=== PATIENT | female | born 1950 | race Caucasian/White ===

== ENCOUNTER → 2025-05-12 09:13 | Outpatient (BNVA) | payer MEDICARE, OTHER, SELFPAY | PROVIDERS: Visit Provider Physician Assistant Surgical | DX: J44.9 Chronic obstructive pulmonary disease, unspecified (principal); R91.1 Solitary pulmonary nodule; E03.9 Hypothyroidism, unspecified; R91.8 Other nonspecific abnormal finding of lung field; Z87.891 Personal history of nicotine dependence | CPT/HCPCS: 36415; 99205 ==

== ENCOUNTER 2025-05-12 17:48 | Outpatient (REF) | payer MEDICARE, OTHER, SELFPAY ==
[2025-05-12 13:30] LABS: Abs Immature Grans 0.03 10^3/uL (0.0-0.06); HCT 45.3 % (36.0-46.0); HGB 15.1 g/dL (11.2-15.7); Immature Grans % 0.4 %; MCH 31.7 pg (27.0-33.0); MCHC 33.3 % (32.0-36.0); MCV 95 fL (80-95); MPV 10.5 fL (8.0-11.0); Platelet Count 240 10^3/uL (130-400); RBC 4.77 10^6/uL (3.93-5.22); RDW 12.0 % (11.7-14.6); RDW-SD 42.3 fL; WBC 7.64 10^3/uL (4.4-10.8)
[2025-05-12 13:47] LABS: NT-proBNP 63 pg/mL (<300); TSH 0.28 uIU/mL (0.36-3.74)
[2025-05-13 11:16] LABS: Ro60 Ab, IgG <7.0 CU (<20.0); SS-A/Ro, IgG <2.3 CU (<20.0); SS-B (La) Ab, IgG <3.3 CU (<20.0); dsDNA Ab, IgG 50.9 IU/mL (<27.0)
[2025-05-13 17:42] LABS: Scl 70 Antibodies, IgG <0.2 U; Sm (Smith) Ab, IgG 1.5 U
[2025-06-09 13:49] LABS: Anti-Jo-1 Ab <20 Units (<20)
[2025-06-09 13:52] LABS: Anti-Ku Ab Negative (Negative); Anti-MDA-5 Ab (CADM-140) <20 Units (<20); Anti-NXP-2 (P140) Ab <20 Units (<20); Anti-PM/Scl-100 Ab <20 Units (<20); Anti-SS-A 52kD Ab, IgG <20 Units (<20); Anti-TIF-1gamma Ab <20 Units (<20); Anti-U2 RNP Ab Negative (Negative); Anti-U3 RNP (Fibrillarin) Negative (Negative)
== END 2025-05-12 17:49 | disposition home or self-care (01) ==
LOC: LBN 17:48
PROVIDERS: Visit Provider Physician Assistant Surgical
DX: E03.9 Hypothyroidism, unspecified (principal); R91.8 Other nonspecific abnormal finding of lung field; J44.9 Chronic obstructive pulmonary disease, unspecified; I50.9 Heart failure, unspecified
CPT/HCPCS: 83516; 86200; 86235; 86376; 82785; 83880; 84439; 84443; 85025; 86038; 86225; 86431

== ENCOUNTER 2025-05-21 01:01 | Outpatient (CLI) | payer MEDICARE, OTHER, SELFPAY ==
[2025-05-21] MEDS: Levalbuterol HFA 15 GM INH 4 PUFF IH (11:52)
[2025-05-21] MEDS: Inhaler, Assist Device 1 EACH MC (11:52)
--- NOTE | 2025-05-24 09:46 | W.PFT ---
Date of service: 05/21/25 Time of Service: 10:03 Pulmonary Function Test Result Indications: ILD Impression 1. Good patient effort was noted. ATS standards for reproducibility were met. 2. Spirometry showed moderate obstructive lung disease with an FEV1 of 54% (0.98 L) 3. Following the administration of a bronchodilator there was not a significant response 4. TLC was normal. No evidence of restrictive lung disease 5. DLCO was normal at 89% predicted
== END 2025-05-21 01:02 | disposition home or self-care (01) ==
LOC: RT 01:01
PROVIDERS: PCP Internal Medicine; Visit Provider Physician Assistant Surgical
DX: J44.9 Chronic obstructive pulmonary disease, unspecified (principal); E03.9 Hypothyroidism, unspecified
CPT/HCPCS: 94060; 94726; 94729

== ENCOUNTER 2025-05-28 03:54 | Outpatient (CLI) | payer MEDICARE, OTHER, SELFPAY ==
--- NOTE | 2025-05-28 06:15 | DI.CT_ITS ---
Exam(s) CT CHEST HIGH RESOLUTION EXAM: CT CHEST HIGH RESOLUTION CLINICAL HISTORY: mosaic attenuation,INTERSTITIAL LUNG ABNORMALITY ON IMAGING. TECHNIQUE: Imaging protocol: Axial computed tomography images were obtained and coronal and sagittal reformatted images were created and reviewed. Lung Computer Aided Detection (CAD) was utilized. COMPARISON: CT CT CHEST SCREENING LUNG CANCER from 04/05/2025 FINDINGS: Tracheobronchial tree: Patent where visualized. No bronchiectasis is present. Pulmonary parenchyma: There is a calcified granuloma in the right lower lobe. The pleural based nodule in the right lower lobe is unchanged. There are no new pulmonary nodules. There are no focal consolidating infiltrates present. There is atelectasis seen in the lung bases bilaterally. The mosaic pattern in the lungs is less prominent compared to the prior examination. Mediastinum and Ese: No dominant adenopathy or fluid collection. The esophagus is unremarkable. Thyroid gland: There is an enlarged right lobe of the thyroid gland. There are thyroid nodules present. The largest is thyroid nodule measures 1.7 cm. There is an associated calcification. Pleura: No effusion or pneumothorax. Heart: The heart is not dilated. No coronary artery calcifications are seen. There is pericardial fluid which appears slightly increased compared to the examination from 04/05/2024. It measures up to 1.4 cm in thickness. Aorta: Thoracic aorta non-dilated. Atherosclerotic calcification is present. Upper abdomen: There are well-circumscribed hypodensities in the liver likely reflecting hepatic cysts. Lymph nodes: Within normal limits. Soft tissues: Unremarkable. Bones:Within normal limits for the patient's age. IMPRESSION: 1. Stable subpleural pulmonary nodule in the right lower lobe. No new pulmonary nodules are present. 2. Mild mosaic pattern in the lungs. This can be seen with small airways disease resulting from inflammation or fibrosis. This can be seen with bronchiolitis. Other causes including include acute infection, organizing pneumonia or chronic fibrotic disease. 3. Multinodular thyroid gland. Nonemergent thyroid ultrasound may be obtained for further characterization. Please review to ascertain whether the patient has had a prior thyroid ultrasound. 4. Slight increase in size of the pericardial effusion since 04/05/2025. It measures up to 1.4 cm in thickness. RADIATION DOSE DELIVERED: 238.11mGy.cm Total DLP 238.11mGy.cm Total DLP DATA REPOSITORY: All CT scans at this facility are submitted to the National Radiology Data Registry (NRDR) Dose Index Registry (DIR) with the [employer] ([employer]). RADIATION OPTIMIZATION: All CT scans at this facility use at least one of these dose optimization techniques: automated exposure control; mA and/or kV adjustment per patient size (includes targeted exams where dose is matched to clinical indication); or iterative reconstruction.
== END 2025-05-28 04:14 ==
LOC: DI 03:54
PROVIDERS: PCP Internal Medicine; Visit Provider Physician Assistant Surgical
DX: R91.8 Other nonspecific abnormal finding of lung field (principal); E03.9 Hypothyroidism, unspecified
CPT/HCPCS: 71250

== ENCOUNTER → 2025-06-15 12:41 | Outpatient (BNVA) | payer MEDICARE, OTHER, SELFPAY | PROVIDERS: PCP Internal Medicine; Referring Provider Internal Medicine; Visit Provider Internal Medicine Pulmonary Disease | DX: R91.1 Solitary pulmonary nodule (principal); I31.39 Other pericardial effusion (noninflammatory); M32.9 Systemic lupus erythematosus, unspecified; J45.40 Moderate persistent asthma, uncomplicated; E04.1 Nontoxic single thyroid nodule; Z87.891 Personal history of nicotine dependence | CPT/HCPCS: 99215 ==

== ENCOUNTER 2025-06-29 01:03 | Outpatient (CLI) | payer MEDICARE, OTHER, SELFPAY ==
--- NOTE | 2025-06-29 07:15 | DI.US_ITS ---
Exam(s) US THYROID EXAM: US THYROID CLINICAL HISTORY: thyroid nodules,e04.1. TECHNIQUE: Ultrasound thyroid performed using standard protocol. COMPARISON: CT CT CHEST HIGH RESOLUTION from 05/28/2025 FINDINGS: This patient has apparently had previous ultrasound-guided thyroid biopsy is at [facility], proximally 1 year ago. She claims this was the right side. RIGHT THYROID LOBE: Measures 1.6 cm AP x 1.7 cm wide x 6.1 cm craniocaudal There are 2 significant nodules in the right lobe. Nodule #1. This is the large dominant solid nodule which most probably underwent prior biopsy. Size: This nodule measures 3.5 x 2.1 x 2.7 cm Grading is as follows: Composition: Solid-2 points Echogenicity: Isoechoic to surrounding gland-1 point Shape: Wider than taller-0 points Margin: Smooth- 0 points Echogenic Foci: Both punctate echogenic foci and macro calcifications-4 points Total Points for this nodule: 7 ACR Ti-Rads Category: TR5 This TR 5 level nodule qualifies for ultrasound-guided FNA biopsy Nodule #2 this is a smaller and more anteriorly located nodule in the right. Size: This nodule measures 1.5 x 0.5 x 1.4 cm Grading is as follows: Composition: Solid-2 points Echogenicity: Hypoechoic- 2 points Shape: Wider than taller- 0 points Margin: Exhibits extra thyroidal extension-3 points Echogenic Foci: None-0 points Total points for this nodule: 5 ACR Ti-Rads Category: TR4 This TR 4 level nodule qualifies for ultrasound-guided biopsy as it exhibits maximum measurement of 1.5 cm. ISTHMUS: Normal thickness. There are no nodules in the isthmus. LEFT THYROID LOBE: Measures 2.8 cm AP x 2.9 wide x 6.5 cm craniocaudal There are 2 nodules in left lobe. Nodule #1. This is the more superior of the 2 nodules It measures 1.5 x 0.8 x 0.9 cm. Grading is as follows: Composition: Solid-2 points Echogenicity: Relatively isoechoic-1 points Shape: Wider than taller in the transverse plane-0 points Margin: Smooth-0 points Echogenic Foci: Contains punctate echogenic foci-3 points Total points for this nodule: 6 ACR Ti-Rads Category: 4 This TR 4 level nodule qualifies for ultrasound-guided FNA as it exhibits a maximum measurement of 1.5 cm Nodule #2 . This is the smaller of the 2 solid nodules in the left lobe Size: It measures 1.1 x 0.6 x 0.7 cm Grading is as follows: Composition: Solid-2 points Echogenicity: Isoechoic-1 point Shape: Wider than taller-0 points Margin: Smooth-0 points Echogenic Foci: Contains punctate echogenic foci-3 points Total Points for this nodule: 6 ACR Ti-Rads Category: 4 This TR 4 level nodule can be followed as it measures less than 1.5 cm LYMPH NODES: Small benign-appearing lymph nodes bilaterally. No significant lymphadenopathy evident. IMPRESSION: 1. Both solid nodules in the right lobe require ultrasound-guided FNA. See above. 2. One of the 2 nodules in the left lobe requires ultrasound-guided FNA. See above. 3. There is no significant lymphadenopathy. DATA REPOSITORY:
== END 2025-06-29 01:23 ==
LOC: DI 01:03
PROVIDERS: PCP Internal Medicine; Visit Provider Internal Medicine Pulmonary Disease
DX: E04.1 Nontoxic single thyroid nodule (principal)
CPT/HCPCS: 76536